=== PATIENT | male | born 1985 | race Caucasian/White ===

== ENCOUNTER 2018-02-19 04:36 | Emergency (ER) | payer OTHER ==
[~2018-02-19] VITALS: Ht 170.2 cm; Wt 81.2 kg
[2018-02-19 04:42] VITALS: Ht 170.2 cm; Wt 81.2 kg
[2018-02-19 05:33] LABS: microscopic required? NO
[2018-02-19 05:39] LABS: UA SPECIFIC GRAVITY 1.025 (1.005-1.035); urine erythrocyte NEGATIVE (NEGATIVE)
[2018-02-19 07:14] VITALS: BP 116/64
== END 2018-02-19 07:49 | disposition home or self-care (01) ==
LOC: ED 04:36
PROVIDERS: Emergency Medicine
DX: N50.812 Left testicular pain (principal); N50.811 Right testicular pain
CPT/HCPCS: J1885; Q0092

== ENCOUNTER 2018-02-20 19:40 | Observation (INO) | payer OTHER ==
[~2018-02-20] VITALS: Ht 170.2 cm; Wt 79.1 kg
[2018-02-20 20:40] LABS: BASOPHIL % 0.6 % (0-2); PLATELET COUNT 211 x10^3mcL (130-400); RED CELL DISTRIBUTION WIDTH 12.2 % (11.5-14.5)
[2018-02-20 20:50] LABS: CARBON DIOXIDE 24.5 mmol/L (21-32); CHLORIDE SERUM 105 mmol/L (98-107); CREATININE SERUM 0.7 mg/dL (0.7-1.3); GFR1 > 60 mL/min; GLUCOSE SERUM 97 mg/dL (74-106); POTASSIUM SERUM 3.6 mmol/L (3.5-5.1); SODIUM SERUM 141 mmol/L (136-145)
[2018-02-20 20:57] LABS: ALBUMIN 3.7 g/dL (3.4-5.0); ALKALINE PHOSPHATASE 106 U/L (46-116); ALT/SGPT 74 U/L (16-63); AMYLASE 35 U/L (25-115); AST/SGOT 51 U/L (15-37); BILIRUBIN TOTAL 0.5 mg/dL (0.20-1.00); LIPASE 117 IU/L (73-393); TOTAL PROTEIN, SERUM 7.5 g/dL (6.4-8.2)
[2018-02-20 22:34] LABS: UA SPECIFIC GRAVITY 1.015 (1.005-1.035); microscopic required? YES; urine erythrocyte NEGATIVE (NEGATIVE)
[2018-02-20 23:09] VITALS: BP 136/85
[2018-02-20 23:17] VITALS: Ht 170.2 cm; Wt 79.1 kg
[2018-02-21 05:51] VITALS: BP 120/81
[2018-02-21 06:27] LABS: BASOPHIL % 0.5 % (0-2); PLATELET COUNT 191 x10^3mcL (130-400); RED CELL DISTRIBUTION WIDTH 12.2 % (11.5-14.5)
[2018-02-21 06:43] LABS: CARBON DIOXIDE 24.7 mmol/L (21-32); CHLORIDE SERUM 108 mmol/L (98-107); CREATININE SERUM 0.8 mg/dL (0.7-1.3); GFR1 > 60 mL/min; GLUCOSE SERUM 90 mg/dL (74-106); POTASSIUM SERUM 4.1 mmol/L (3.5-5.1); SODIUM SERUM 142 mmol/L (136-145)
[2018-02-21 10:46] VITALS: BP 113/71
[2018-02-21 18:17] VITALS: BP 115/76
[2018-02-21 21:39] VITALS: BP 110/72
[2018-02-22 05:47] VITALS: BP 100/56
[2018-02-22 08:48] VITALS: BP 109/71
[2018-02-22 10:06] VITALS: BP 109/71
== END 2018-02-22 10:35 | disposition home or self-care (01) | DRG 690 ==
LOC: ED 19:40 → MU 22:14
PROVIDERS: Emergency Medicine; Internal Medicine
DX: N39.0 Urinary tract infection, site not specified (principal); Z68.27 Body mass index [BMI] 27.0-27.9, adult
CPT/HCPCS: 83880; 87046; 87046-59; G0378; J1885; J1956; J2270; J2405; J7030; J7042